=== PATIENT | male | born 1970 | race African-American/Black ===

== ENCOUNTER 2016-11-03 12:20 | Emergency (ER) | payer OTHER ==
[2016-11-03] MEDS ORDERED: LABETALOL 100 MG/20 ML VIAL ONE (12:50)
[2016-11-03] MEDS ORDERED: PROMETHAZINE 25 MG/ML VIAL ONE (12:50)
[2016-11-03] MEDS ORDERED: DILAUDID 1 MG/ML AMP ONE (12:52)
[2016-11-03] MEDS ORDERED: SODIUM CHLORIDE 0.9% 50 ML IV ONE (12:52)
== END 2016-11-03 14:50 | disposition home or self-care (01) ==
LOC: ER 12:20
CPT/HCPCS: 36415 ×2; 70450 ×2; 80053 ×2; 85025 ×2; 85610 ×2; 85730 ×2; 96374 ×2; 96375 ×2; 99285; J1170; J2550